=== PATIENT | female | born 1990 | race Caucasian/White ===

== ENCOUNTER 2016-04-06 08:18 | Emergency (ER) ==
--- NOTE | 2016-04-06 09:30 | Diag Imaging Result Document ---
PROCEDURE NAME: CERVICAL SPINE COMPLETE - 04/06/2016 X-RAY CERVICAL SPINE 5 VIEWS, 04/06/2016: COMPARISON: None. FINDINGS: There is mild reversal of the normal cervical lordosis. No fracture or subluxation. Vertebral body heights and intervertebral disk spaces are preserved. Neural foramina are patent. IMPRESSION: Nonspecific reversal of the normal cervical lordosis.
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
[2016-04-06 10:50] VITALS: BP 132/66
== END 2016-04-06 10:49 | disposition home or self-care (01) ==
LOC: P.ED 08:18
DX: M54.2 Cervicalgia (principal); S10.83XA Contusion of other specified part of neck, initial encounter; F17.210 Nicotine dependence, cigarettes, uncomplicated; Z71.6 Tobacco abuse counseling; Y04.8XXA Assault by other bodily force, initial encounter
CPT/HCPCS: 72050; 99283